=== PATIENT | female | born 1995 | race Caucasian/White ===

== ENCOUNTER → 2020-08-09 | Outpatient (CLI) | payer OTHER ==
--- NOTE | 2020-08-10 03:12 | REP ---
INDICATION: ANKLE AND FOOT SPRAIN COMPARISON: None. TECHNIQUE: AP, lateral, bilateral oblique views. FINDINGS: No acute fracture or dislocation. Skeletal structures and joint spaces are intact and normal. Ankle mortise appears stable. No subcutaneous emphysema or radiodense foreign body. Lateral swelling consistent with inversion injury and sprain. IMPRESSION: Lateral swelling consistent with inversion injury and sprain. No obvious acute fracture or dislocation. <Electronically signed by Kwame Martinez > 08/10/20 [id number]
--- NOTE | 2020-08-10 03:14 | REP ---
INDICATION: ANKLE AND FOOT SPRAIN COMPARISON: None. TECHNIQUE: AP, lateral, bilateral oblique views left foot. FINDINGS: The osseous structures and joint spaces are intact and normal. There is no evidence for acute fracture or dislocation. Surrounding soft tissues are unremarkable. No subcutaneous emphysema or radiodense foreign body. IMPRESSION: . No acute fracture or dislocation. <Electronically signed by Kwame Martinez > 08/10/20 [id number]
== END ==
LOC: M WUC 15:14
PROVIDERS: ATTEND Physician Assistant
DX: S93.402A Sprain of unspecified ligament of left ankle, initial encounter (principal); S93.602A Unspecified sprain of left foot, initial encounter; M79.89 Other specified soft tissue disorders; X58.XXXA Exposure to other specified factors, initial encounter; Y92.9 Unspecified place or not applicable